=== PATIENT | male | born 1995 | race Caucasian/White ===

== ENCOUNTER 2017-03-31 23:33 | Emergency (ER) | payer SELFPAY | END 2017-04-01 00:49 | disposition left against medical advice (07) | LOC: ER 23:41 | DX: R40.4 Transient alteration of awareness (principal) ==

== ENCOUNTER 2017-09-21 22:30 | Emergency (ER) | payer SELFPAY ==
[~2017-09-21] VITALS: Ht 185.4 cm; Wt 68.0 kg
--- NOTE | 2017-09-21 22:47 | ED Lower Extremity ---
General Chief Complaint: Lower Extremity Stated Complaint: FALL,R KNEE PAIN Source: patient History of Present Illness Date Seen by Provider: Sep 21, 2017 Time Seen by Provider: 22:43 Initial Comments PT ARRIVES VIA POV STATES HE SLIPPED ON THE ICE AND TWISTED HIS RIGHT KNEE INWARD--EXTREMELY BAD WEATHER / ICE STORM CURRENTLY OCCURRED 30 MINUTES AGO HAS CHRONIC PROBLEMS WITH THIS KNEE AND HAS HAD 3 PRIOR SURGERIES AND WAS SUPPOSED TO HAVE A 4TH ONE A YEAR AGO, BUT INSURANCE CHANGED AND HE COULD NOT HAVE IT DONE. THIS IS A FREQUENT PROBLEM DENIES ACTUALLY FALLING OR INJURING HIMSELF ANYWHERE ELSE. PCP:TOSHIA LIVES HERE NOW,BUT IS FROM [place] Allergies and Home Medications Allergies Coded Allergies: codeine (Verified Allergy, Unknown, 09/21/17) Home Medications Naproxen 500 Mg Tablet, 500 MG PO BID, #20 Prescribed by: DAMIÁN CALDERON on 09/21/17 2320 Tramadol HCl 50 Mg Tablet, 50 MG PO Q4H, #20 Prescribed by: DAMIÁN CALDERON on 09/21/17 2320 Constitutional: no symptoms reported Musculoskeletal: see HPI Skin: no symptoms reported Psychiatric/Neurological: No Symptoms Reported Past [id number] Hx Surgeries History of Surgeries: Yes (RIGHT KNEE SURGERY X 3) Surgeries: Orthopedic Musculoskeletal History of Musculoskeletal Dis: Yes (CHRONIC RIGHT KNEE PAIN ) Physical Exam Vital Signs Vital Signs - First Documented 09/21/17 22:35 Temp 98.7 Pulse 78 Resp 16 B/P (MAP) 132/89 (103) Pulse Ox 99 O2 Delivery Room Air Capillary Refill : General Appearance: WD/WN, no apparent distress, thin Hips: right hip normal inspection Legs: right leg normal inspection Ankles: right ankle bone tenderness, right ankle limited range of motion, right ankle pain, right ankle soft tissue tenderness, right ankle other (NO OVERT EFFUSION. TENDERNESS IS ALL ALONG MEDIAL ASPECT OF KNEE. UNABLE TO DETERMINE LIGAMENT LAXITY DUE TO PAIN ) Feet: right foot normal inspection Neurologic/Tendon: normal sensation, normal motor functions, normal tendon functions Neurologic/Psychiatric: booster pump oiler II-XII nml as tested, no motor/sensory deficits, alert, normal mood/affect, oriented x 3 Skin: normal color, warm/dry, No ecchymosis Splinting and Joint Reduction : Progress REFUSES KNEE IMMOBILIZER, STATES HE HAS ONE AT HOME Lobo wrap: Yes Ordered: Crutches Progress/Results/Core Measures Results/Orders My Orders Orders - DAMIÁN CALDERON DO Knee, Right, 3 Views (09/21/17 22:43) Lobo Bandage (09/21/17 23:13) Crutches (09/21/17 23:13) Knee Immobilizer (09/21/17 23:13) Rx-Naproxen (Rx-Naprosyn) (09/21/17 23:14) Rx-Tramadol Hcl (Rx-Ultram) (09/21/17 23:14) Vital Signs/I&O Vital Sign - Last 12Hours 09/21/17 22:35 Temp 98.7 Pulse 78 Resp 16 B/P (MAP) 132/89 (103) Pulse Ox 99 O2 Delivery Room Air Diagnostic Imaging Comments XRAYS RIGHT KNEE--NO ACUTE PROCESS, PENDING RADIOLOGIST REVIEW Reviewed: Reviewed by Me Departure Impression Impression: Primary Impression: Right knee sprain Additional Impression: HISTORY OF CHRONIC RIGHT KNEE PAIN Disposition: HOME, SELF-CARE Condition: Stable Departure-Patient Inst. Referrals: NO,LOCAL PHYSICIAN (PCP) Primary Care Physician JO DAUGHERTY DO Patient Instructions: Going Up and Down Curbs or Stairs With a Walker or Crutches, How to Use Crutches, Knee Immobilizer (DC), Knee Sprain (DC), Ligament Injuries in the Knee (DC) Add. Discharge Instructions: LOBO WRAP, KNEE IMMOBILIZER AND CRUTCHES AT ALL TIMES ICE TO AREA AT 20 MINUTE INTERVALS ELEVATE LEG MUCH POSSIBLE FOLLOW UP WITH DR. DAUGHERTY/ORTHO 4 STATES NEXT WEEK FOR FURTHER CARE All discharge instructions reviewed with patient and/or family. Voiced understanding. Scripts Tramadol HCl (Ultram) 50 Mg Tablet 50 MG PO Q4H, #20 TAB Prov: DAMIÁN CALDERON DO 09/21/17 Naproxen (Naproxen) 500 Mg Tablet 500 MG PO BID, #20 TAB Prov: DAMIÁN CALDERON DO 09/21/17 DAMIÁN CALDERON DO Sep 21, 2017 22:47
[2017-09-21] MEDS ORDERED: RX-NAPROXEN (NAPROSYN) 250 MG TAB PPK#4 PO STA (23:14)
[2017-09-21] MEDS ORDERED: RX-TRAMADOL 50 MG (ULTRAM) TAB PPK#4 PO STA (23:14)
[2017-09-21] MEDS ORDERED: TRAM-42 PO (23:20)
[2017-09-21] MEDS ORDERED: NAPR500T4 PO (23:20)
[2017-09-21 23:24] VITALS: BP 128/78
--- NOTE | 2017-09-22 06:47 | Diagnostic Imaging Report ---
EXAM: KNEE, RIGHT, 3 VIEWS INDICATION: Right knee pain. Fall. COMPARISON: None. FINDINGS: No fracture or malalignment. Soft tissue shadows are unremarkable. IMPRESSION: Negative right knee radiographs. Dictated by: Dictated on workstation # [id number]
== END 2017-09-21 23:24 | disposition home or self-care (01) ==
LOC: EDUNIT# 22:30 → ER 22:32
DX: S83.91XA Sprain of unspecified site of right knee, initial encounter (principal); X50.0XXA Overexertion from strenuous movement or load, initial encounter
CPT/HCPCS: 73562; 99283